=== PATIENT | male | born 1985 | race Caucasian/White ===

== ENCOUNTER 2016-11-17 14:27 | Inpatient (IN) | payer OTHER ==
--- NOTE | ~2016-11-17 | PN ---
Unit #: [id number] #: [id number] Patient: ELIAS DANG [id number] [facility] [address] [place] [address] [id number] MR#: [id number] NAME: ELIAS DANG ROOM: P182 Age: 31 Sex: M Admission Date: 11/17/2016 : 1985 Attending Physician: Dutch Mehta M.D. Admitting Physician: Dutch Mehta M.D. Primary Care Physician: Primary Care Physician Sydney CENTENO NOTES DATE OF SERVICE: 11/20/2016 SUBJECTIVE Mr. Dang is a 31-year-old white male, who was seen today and chart was reviewed, and case was discussed with the staff. He has been anxious, withdrawn, though has not shown any agitation or irritability, and has been cooperative with the treatment recommendations and has been taking the medications and tolerating them fairly well with no reported side effects. MENTAL STATUS EXAMINATION Young white male, who was casually dressed with fair personal hygiene, appears to be in no acute distress or discomfort. He was awake and alert on interaction with intact orientation. His mood was anxious with a congruent affect. His speech was slow and goal directed. He denies any suicidal or homicidal ideations. His insight and judgment remain slightly impaired. TREATMENT PLAN 1. We will continue him on his current medications and treatment protocol. We will monitor his response to the medications and make further adjustments as needed. 2. We will continue to follow up. Dictated by... Debby Hernandez/catherine TD: 11/21/2016 00:19 JOB #: [id number] [facility] PROGRESS NOTES X Dutch Mehta MD PROGRESS NOTE
--- NOTE | ~2016-11-17 | PN ---
Unit #: [id number] #: [id number] Patient: ELIAS DANG [id number] [facility] [address] [place] [address] [id number] I MR#: [id number] NAME: ELIAS DANG ROOM: P182 Age: 31 Sex: M Admission Date: 11/17/2016 : 1985 Attending Physician: Dutch Mehta M.D. Admitting Physician: Dutch Mehta M.D. Primary Care Physician: Primary Care Physician Sydney CENTENO NOTES DATE 11/18/2016 DISCUSSION Mr. Dang is a 31-year-old, white male with substance abuse and mood disorder who was seen today and chart was reviewed and case was discussed with the staff. He was seen to be anxious, withdrawn in distressed and discomfort as he goes through detox. Meanwhile, he has been taking medications and tolerating them fairly well with no reported side effects. MENTAL STATUS EXAM Young white male who was casually dressed with fair personal hygiene, appears to be in no acute distress or discomfort. He was awake and alert on interaction with intact orientation. His mood was anxious with congruent affect. His speech was slow and goal directed. He denies any suicidal or homicidal ideation. Also, denies any auditory or visual hallucinations. His insight and judgement remains slightly impaired. TREATMENT PLAN 1. We will continue him on his current medications and treatment protocol. We will monitor his response to the medications and make further adjustments as needed. 2. We will continue to follow up. Dictated by... Debby Hernandez/roseanna TD: 11/18/2016 21:55 JOB #: [id number] Unit #: [id number] #: [id number] Patient: ELIAS DANG DEANNA CENTENO NOTES X Dutch Mehta MD PROGRESS NOTE
--- NOTE | ~2016-11-17 | DS ---
Unit #: [id number] #: [id number] [facility] [id number] [facility] [address] [place] [address] [id number] I MR#: [id number] NAME: ELIAS DANG ROOM: 82 Age: 31 Sex: M Admission Date: 11/17/2016 : 1985 Discharge Date: 11/23/2016 Attending Physician: Dutch Mehta M.D. Primary Care Physician: Primary Care Physician No DISCHARGE SUMMARY IDENTIFYING DATA Mr. Dang is a 31-year-old single white male, who is a resident of [place], [place], and was self-referred to the hospital. DISCHARGE DIAGNOSES Psychiatric: Opioid dependence, moderate and acute withdrawals; benzodiazepine dependence, moderate; opioid-induced mood disorder. Medical: None. Stressors: Moderate psychosocial stressors. HISTORY OF PRESENT ILLNESS Please see initial psychiatric evaluation for details. PAST PSYCHIATRIC HISTORY Please see initial psychiatric evaluation for details. PAST MEDICAL HISTORY Please see initial psychiatric evaluation for details. HOSPITAL COURSE The patient was admitted to the adult psychiatric and chemical dependency unit at [facility] and was oriented to the hospital environment. Routine p.r.n. medications were initiated, and he was started back on his home medications and medications were adjusted and he was closely monitored. He was taking the medications regularly and was tolerating them fairly well and he was seen to be showing improvement in his depression and anxiety and was denying any suicidal or homicidal ideation. No acute detox symptoms were noticed and as such, it was decided that he will be kept on his current medications and will be discharged home and will continue treatment on an outpatient basis. DISCHARGE MEDICATIONS None. DISCHARGE CONDITION Stable. PROGNOSIS Fair. Dictated by... Dutch Mehta M.D. Unit #: [id number] #: [id number] Patient: ELIAS DANG DARIAN/modl TD: 11/23/2016 07:43 JOB #: [id number] DISCHARGE SUMMARY X Dutch Mehta MD X DISCHARGE SUMMARY
--- NOTE | ~2016-11-17 | PA ---
Unit #: [id number] #: [id number] Patient: ELIAS DANG [id number] [facility] [address] [place] [address] [id number] I MR#: [id number] NAME: ELIAS DANG ROOM: P182 Age: 31 Sex: M Admission Date: 11/17/2016 : 1985 Date of Assessment: 11/17/2016 Attending Physician: Dutch Mehta M.D. Admitting Physician: Dutch Mehta M.D. Primary Care Physician: Primary Care Physician No PSYCHIATRIC ASSESSMENT DATE OF SERVICE 11/17/2016. IDENTIFYING DATA Mr. Dang is a 31-year-old single white male, who is a resident of [place], [place], and was self-referred to the hospital on a voluntary basis. CHIEF COMPLAINT "I've using opioids for the past 15 years." HISTORY OF PRESENT ILLNESS Mr. Dang is a 31-year-old white male, who was self-referred to the hospital. Upon presentation, reports that he has been using opioids for the last 15 years, heroin for the past 5, and Xanax for the past 7 or 8 years, and marijuana for about 20 years, and stated that he started out with the pain pills, but now it is just the heroin and "I just used about 1 g a day IV and my last use was yesterday. When I went to [facility], I stopped for about a week. Two years ago, I used about one bar to two of Xanax a day and my last use was yesterday." He does report extensive history of substance abuse and dependence, and depression, anxiety, irritability, restlessness, feelings of hopelessness and helplessness, but denies any suicidal ideations, intent, or plan. SUBSTANCE ABUSE HISTORY The patient reports history of experimentation and abuse of cannabis, opioids, methamphetamine, and benzodiazepines, and currently opioids, particularly IV heroin has been his drug of choice, though he has been using Xanax on regular basis as well. PAST PSYCHIATRIC HISTORY The patient has not had any prior inpatient or outpatient psychiatric treatment. Review of the medical records indicate that he is currently not active in treatment program, is not seeing a psychiatrist, not taking any psychotropic medications. PAST MEDICAL HISTORY No acute or chronic medical illnesses. ALLERGIES No known medication allergies. PERSONAL AND SOCIAL HISTORY Unit #: [id number] #: [id number] Patient: ELIAS DANG A 31-year-old white male, who reports that he is single, unemployed, and lives by himself and has poor social support system. MENTAL STATUS EXAMINATION Young white male who was casually dressed with fair personal hygiene, appears to be in no acute distress or discomfort. He was awake and alert on interaction with intact orientation to time, place, and person. His mood was anxious and depressed with a congruent affect. His speech was slow and goal directed. His thought processes were disorganized with some looseness of associations. He denies any suicidal or homicidal ideations, and also denies any auditory or visual hallucinations. His insight and judgment remain significantly impaired. DIAGNOSTIC IMPRESSION Psychiatric: Opioid dependence, moderate and acute withdrawals; benzodiazepine dependence, moderate; opioid-induced mood disorder. Medical: None. Stressors: Moderate psychosocial stressors. TREATMENT PLAN 1. The patient has presented with history of substance abuse and mood disorder, and has been decompensating and will need inpatient hospitalization for detoxification, safety, and stabilization. We will start him on detox protocol. We will closely monitor for any worsening withdrawal symptoms. 2. Supportive therapy was provided to the patient. 3. Safe, structured, and nourishing environment will be provided. ESTIMATED LENGTH OF STAY 4 to 5 days. ABILITY TO HELP SELF Limited. WILLINGNESS TO HELP SELF The patient appears to be willing to help self. STRENGTHS 1. Communicative. 2. Cooperative. PROBLEMS 1. Chronic dysphoric symptoms. 2. Chronic chemical dependency. 3. Poor social support system. DISCHARGE CRITERIA This will be contingent upon the patient's ability to show resolution of his depression and anxiety as well as his ability to stay safe to himself, particularly after discharge from the hospital. Dictated by... Debby Hernandez/catherine TD: 11/19/2016 00:26 Unit #: [id number] #: [id number] Patient: ELIAS DANG JOB #: [id number] PSYCHIATRIC ASSESSMENT X Dutch Mehta MD PSYCHIATRIC ASSESSMENT
--- NOTE | ~2016-11-17 | PN ---
Unit #: [id number] #: [id number] Patient: ELIAS DANG [id number] [facility] [address] [place] [address] [id number] I MR#: [id number] NAME: ELIAS DANG ROOM: P182 Age: 31 Sex: M Admission Date: 11/17/2016 : 1985 Attending Physician: Dutch Mehta M.D. Admitting Physician: Dutch Mehta M.D. Primary Care Physician: Primary Care Physician Sydney CENTENO NOTES DATE OF SERVICE 11/19/2016 DISCUSSION Mr. Dang is a 31-year-old white male with substance abuse and mood disorder who was seen today. Chart was reviewed and case was discussed with the staff. He has been anxious, withdrawn, and reports being in distress and discomfort as he goes through detox. Meanwhile, he has been compliant with the treatment recommendations and has been taking the medications and tolerating them fairly well. MENTAL STATUS EXAMINATION Young white male who is casually dressed with fair personal hygiene, appears to be in no acute distress or discomfort. He was awake and alert on interaction with intact orientation. His mood is anxious with congruent affect. He denies any suicidal or homicidal ideations and also denies any auditory or visual hallucinations. His insight and judgment remain slightly impaired. TREATMENT PLAN We will continue him on his current medications and treatment protocol. We will monitor his response to the medications and make further adjustments as needed. Dictated by... Debby Hernandez/bzg TD: 11/20/2016 09:30 JOB #: [id number] Unit #: [id number] #: [id number] Patient: ELIAS DANG DEANNA CENTENO NOTES X Dutch Mehta MD X PROGRESS NOTE
--- NOTE | ~2016-11-17 | PN ---
Unit #: [id number] #: [id number] Patient: ELIAS DANG [id number] [facility] [address] [place] [address] [id number] I MR#: [id number] NAME: ELIAS DANG ROOM: P182 Age: 31 Sex: M Admission Date: 11/17/2016 : 1985 Attending Physician: Dutch Mehta M.D. Admitting Physician: Dutch Mehta M.D. Primary Care Physician: Primary Care Physician Sydney CENTENO NOTES DATE 11/21/2016 DISCUSSION Mr. Dang is a 31-year-old, white male who was seen today and chart was reviewed and case was discussed with the staff. He has been anxious, withdrawn and rather seclusive to himself. Meanwhile, he has been cooperative with the treatment recommendations. He has been taking the medication and tolerating them fairly well. MENTAL STATUS EXAM Young white male who was casually dressed with fair personal hygiene, appears to be in no acute distress or discomfort. He was awake and alert on interaction with intact orientation. His mood was anxious with congruent affect. His speech was slow and goal directed. He denies any suicidal or homicidal ideation. His insight and judgement remains slightly impaired. TREATMENT PLAN 1. We will continue him on his current medications and treatment protocol. We will monitor his response to the medication and make further adjustments as needed. 2. We will continue to follow up. Dictated by... Debby Hernandez/roseanna TD: 11/23/2016 00:39 JOB #: [id number] Unit #: [id number] #: [id number] Patient: ELIAS DANG DEANNA PROGRESS NOTES X Dutch Mehta MD PROGRESS NOTE
--- NOTE | ~2016-11-17 | HP ---
Unit #: [id number] #: [id number] Patient: ELIAS DANG [id number] [place] [address] [id number] I MR#: [id number] NAME: ELIAS DANG ROOM: P182 Age: 31 Sex: M Admission Date: 11/17/2016 : 1985 Attending Physician: Dutch Mehta M.D. Admitting Physician: Dutch Mehta M.D. Primary Care Physician: Primary Care Physician No HISTORY AND PHYSICAL HISTORY OF PRESENT ILLNESS Elias is a 31 year old admitted to [facility] because of his continued polysubstance abuse which includes benzodiazepines and IV heroin. He has had other admissions to this facility for treatment of the same. PAST MEDICAL HISTORY Long history of polysubstance abuse to include IV drugs. PAST SURGICAL HISTORY Nothing reported. ALLERGIES No known drug allergies. SOCIAL HISTORY Smokes one pack per day. Drinks alcohol rarely. Admits to long history of illicit substance abuse to include benzodiazepines and IV heroin. FAMILY HISTORY Medically noncontributory. REVIEW OF SYSTEMS CONSTITUTIONAL: No fever or chills. HEENT: Denies any sore throat, ear pain or runny nose. CARDIOVASCULAR: Denies chest pain, irregular heart rhythm or palpitations. CHEST: Denies shortness of breath or cough. No hemoptysis. GASTROINTESTINAL: Denies nausea, vomiting, diarrhea or chronic constipation. ENDOCRINE: Denies history of increased thirst or urination. No recent significant weight loss or gain. GENITOURINARY: Denies dysuria, frequency, or hematuria. SKIN: Denies any rashes. HEMATOLOGIC: Denies history of increased bleeding or bruising. MUSCULOSKELETAL: Denies any hot, swollen joints. No generalized muscle pain. NEUROLOGIC: Denies problems with vision or speech. No frequent, severe headaches. No numbness, tingling or weakness in any extremities. Denies loss of bladder or bowel control. CURRENT MEDICATIONS Detox protocol. PHYSICAL EXAMINATION Unit #: [id number] #: [id number] Patient: ELIAS DANG GENERAL: Alert, well nourished. No apparent distress. VITAL SIGNS: Blood pressure 120/88, heart rate 80, respirations 16, and temperature 98.6. WEIGHT: 210. HEIGHT: 5 feet 10 inches. SKIN: Warm and dry without rash or lesion. HEENT: Normocephalic. TMs not viewed. Oral and nasal passages clear. Conjunctivae clear. PERRLA. EOMs intact. NECK: Supple without lymphadenopathy or thyromegaly. HEART: Regular rate and rhythm without murmur. LUNGS: Clear. ABDOMEN: Soft, nontender. : Not done. EXTREMITIES: No evidence of cyanosis, clubbing or edema. Moves all without focal deficit. NEUROLOGICAL: Grossly within normal limits. Cranial Nerves: II: Visual ramon are intact. III, IV AND : Extraocular movements are intact. Pupils are equal, round and reactive to light. V: Facial sensation is grossly normal. VII: Facial movements and expression are normal. VIII: Auditory acuity grossly intact. IX, X: Uvula is midline. Phonation is normal. XI: Patient shrugs shoulders and turns head normally. XII: Tongue protrudes in the midline. Sensory and Motor Function: Sensory and motor sensation is grossly normal. Motor: moves all extremities well. Coordination: Gait is normal. Deep Tendon Reflexes: Intact. IMPRESSION Psychiatric admission. RECOMMENDATIONS PSYCHIATRIC: Per psychiatrist. MEDICAL: I see no contraindication to participate in this facility's activities. MEDICAL PROGNOSIS Good. MEDICAL CONDITION Stable. Dictated by... Audra Hendrix PCoriACori-C. for Debby Serna/milind TD: 11/18/2016 14:48 JOB #: [id number] Unit #: [id number] #: [id number] Patient: ELIAS DANG HISTORY AND PHYSICAL X Audra Hendrix HISTORY AND PHYSICAL
--- NOTE | ~2016-11-17 | PN ---
Unit #: [id number] #: [id number] Patient: ELIAS DANG [id number] [facility] [address] [place] [address] [id number] I MR#: [id number] NAME: ELIAS DANG ROOM: P182 Age: 31 Sex: M Admission Date: 11/17/2016 : 1985 Attending Physician: Dutch Mehta M.D. Admitting Physician: Dutch Mehta M.D. Primary Care Physician: Primary Care Physician Sydney CENTENO NOTES DATE OF SERVICE: 11/22/2016 SUBJECTIVE Mr. Dang is a 31-year-old white male with substance abuse and mood disorder, who was seen today and chart was reviewed and case was discussed with the staff. He has been anxious and withdrawn, though has not shown any agitation, appears to be coming out of the detox without any complications. He has been taking the medications and tolerating them fairly well with no reported side effects. MENTAL STATUS EXAMINATION Young white male who was casually dressed with fair personal hygiene, appears to be in no acute distress or discomfort. He was awake and alert on interaction with intact orientation. His mood was anxious with a congruent affect. He denies any suicidal or homicidal ideations, and also denies any auditory or visual hallucinations. His insight and judgment remain slightly impaired. TREATMENT PLAN We will continue him on his current medications and treatment protocol. We will monitor his response to the medications and make further adjustments as needed. Dictated by... Debby Hernandez/catherine TD: 11/22/2016 11:38 JOB #: [id number] [facility] PROGRESS NOTES X Dutch Mehta MD PROGRESS NOTE
[2016-11-18 12:28] LABS: BASOPHIL% 0.3 % (0-2.5); EOSINOPHIL% 0.8 % (0.0-7.0); HEMATOCRIT 40.4 % (38.0-50.0); HEMOGLOBIN 12.9 gm/dL (13.0-16.0); LYMPHOCYTE# 1.2 X10e3 (1.0-3.5); MEAN CELL VOLUME 79.8 FL (83-96); MEAN CORPUSCULAR HEMOGLOBIN 25.5 PG (28-34); MEAN CORPUSCULAR HGB CONC 31.9 g/dL (30-36); MEAN PLATELET VOLUME 8.8 FL (6.5-11.5); MONOCYTE# 0.6 X10e3 (0-1.0); MONOCYTE% 9.4 % (3.0-12.0); NEUTROPHIL# 4.4 X10e3 (1.5-7.1); NEUTROPHIL% 70.5 % (40-75); PLATELET COUNT 200 X10e3 (140-420); RED BLOOD COUNT 5.07 X10e (3.90-5.60); RED CELL DISTRIBUTION WIDTH 16.2 % (11.0-15.5); WHITE BLOOD COUNT 6.2 X10e3 (4.0-10.5)
[2016-11-18 12:39] LABS: DIFF IND NO
[2016-11-18 12:39] LABS: URINE APPEARANCE CLEAR; URINE BILIRUBIN NEG (NEG); URINE BLOOD NEG (NEG); URINE COLOR YELLOW; URINE GLUCOSE NEG (NEG); URINE KETONE NEG (NEG); URINE LEUKOCYTE ESTERASE NEG (NEG); URINE NITRATE NEG (NEG); URINE PH 6.5 (5-8); URINE PROTEIN NEG (NEG); URINE SPECIFIC GRAVITY 1.021 (1.003-1.035); URINE UROBILINOGEN 0.2 MG/DL (NEG)
[2016-11-18 12:50] LABS: ALBUMIN SERUM 3.6 g/dL (3.5-5.0); ALKALINE PHOSPHATASE 77 U/L (32-92); ALT (SGPT) 24 U/L (10-40); AST (SGOT) 23 U/L (10-42); BILIRUBIN,TOTAL 0.5 mg/dL (0.2-2.0); BLOOD UREA NITROGEN 12 mg/dL (9-23); BUN/CREATININE RATIO 17.14; CALCIUM SERUM 9.4 mg/dL (8.4-10.2); CARBON DIOXIDE 26 mmol/L (22-31); CHLORIDE 105 mmol/L (100-111); CREATININE SERUM 0.7 mg/dL (0.6-1.4); GLOM FILT RATE Estimated ABOVE60 mL/min (>60); GLUCOSE FASTING 77 mg/dL (70-110); POTASSIUM 4.8 mmol/L (3.5-5.1); PROTEIN TOTAL SERUM 6.8 g/dL (6.0-8.3); SODIUM 136 mmol/L (135-145)
[2016-11-18 12:55] LABS: THYROID STIMULATING HORMONE 0.47 uIU/ml (0.34-5.60)
[2016-11-18 13:02] LABS: FREE THYROXIN (T4) 0.89 ng/dL (0.58-1.64)
[2016-11-18 13:48] LABS: AMPHETAMINE NEG (NEG); BARBITURATES NEG (NEG); BENZODIAZEPINES POS (NEG); COCAINE NEG (NEG); MARIJUANA POS (NEG); OPIATES POS (NEG); TRICYCLIC ANTIDEPRESSANTS NEG (NEG); U METHADONE NEG (NEG)
== END 2016-11-23 11:16 | disposition home or self-care (01) | DRG 897 ==
LOC: P1E 14:27
PROVIDERS: Psychiatry & Neurology Psychiatry
PROC: HZ2ZZZZ Detoxification Services for Substance Abuse Treatment (ICD-10-PCS; principal; 2016-11-17)
DX: F11.23 Opioid dependence with withdrawal (principal); F13.20 Sedative, hypnotic or anxiolytic dependence, uncomplicated; F11.24 Opioid dependence with opioid-induced mood disorder; F17.210 Nicotine dependence, cigarettes, uncomplicated
CPT/HCPCS: 80053; 80307; 81003; 84439; 84443; 85025; 86592